=== PATIENT | female | born 1970 | race Caucasian/White ===

== ENCOUNTER 2018-03-08 01:19 | Emergency (ER) | payer MEDICAID ==
[~2018-03-08] VITALS: Ht 154.9 cm; Wt 69.9 kg
[2018-03-08 01:24] VITALS: Ht 154.9 cm; Wt 69.9 kg
--- NOTE | 2018-03-08 03:04 | ERD ---
ER Documentation Chief Complaint Chief Complaint LEFT EAR PAIN AND CHEEK PAIN/ITCHING X3DAYS HPI Patient is a 47-year-old female with no past medical history presents the ER for concerns of left ear discomfort and left cheek tingling for the last 5 days. Patient states her symptoms started 5 days ago. Patient reports her left cheek itching at that time. Patient states she has had an intermittent burning sensation since onset of symptoms to her left cheek. Patient denies any rashes. She states she thought she may have been having allergic reaction so she tried to put Vaseline to the affected area. Patient denies any lip swelling, tongue swelling, difficulty swallowing, chest tightness, cough. Patient denies any chest pain, shortness breath, left upper extremity pain, diaphoresis or LOC. Patient denies any headache. Patient denies any pain. Patient denies any unilateral weakness, difficulty ambulating, slurred speech or facial asymmetry. Patient's is also present and states that patient has not had any of these symptoms. ROS All systems reviewed and are negative except as per history of present illness. PMhx/Soc Medical and Surgical Hx: pt denies Medical Hx, pt denies Surgical Hx Hx Alcohol Use: No Hx Substance Use: No Hx Tobacco Use: No Smoking Status: Never smoker FmHx Family History: No diabetes Physical Exam Vitals Vital Signs Date Temp Pulse Resp B/P (MAP) Pulse Ox O2 O2 Flow FiO2 Time Delivery Rate 03/08/18 97.0 75 19 145/79 98 01:24 (101) Physical Exam GENERAL: Well-developed, well-nourished female. Appears in no acute distress. Speaking in full sentences. No facial asymmetry noted. HEAD: Normocephalic, atraumatic. EYES: Pupils are equally reactive bilaterally. EOMs grossly intact. No conjunctival erythema. ENT: Bilateral TMs nonerythematous, non bulging. No mastoid tenderness bilaterally. Moist mucous membranes. No uvula deviation. No kissing tonsils. NECK: Supple. No meningismus. Normal range of motion of the neck. LUNG: Clear to auscultation bilaterally. No rhonchi, wheezing, rales or coarse breath sounds. HEART: Regular rate and rhythm. No murmurs, rubs or gallops. EXTREMITIES: Equal pulses bilaterally. No peripheral clubbing, cyanosis or edema. No unilateral leg swelling. NEUROLOGIC: Alert and oriented x3, cooperative. Mood and affect appropriate to situation. Cranial nerves II through XII are grossly intact. Normal speech. Motor exam: 5/5 strength in upper and lower extremities. Sensory exam: Sensation intact to light touch on all four extremities. Cerebellar function exam: Rapid alternating movements intact. No dysmetria on psoagf-mi-dwqj and cxeb-fx-nmzh test. Steady gait. No pronator drift. Equal operations administrative assistant strength bilaterally. SKIN: Normal color. Warm and dry. No rashes or lesions. Procedures/MDM MEDICAL DECISION MAKING: Patient is a 46-year-old female no past medical history presents the ER for concerns of left ear discomfort and cheek tingling for the last 5 days. Patient denied history of slurred speech, facial asymmetry, unilateral weakness, difficulty ambulating. Vital signs were reviewed. Patient is afebrile. Patient was not hypoxic. Patient was hemodynamically stable. Physical exam findings were unremarkable. Low suspicion for Meraz's palsy. Full neuro exam was normal. I have low suspicion for CVA or TIA at this time. Patient denies any chest pain, shortness of breath, nausea, vomiting or LOC. Low suspicion for ACS, PE or aortic dissection. Patient was advised that she may follow-up with a neurolo gist for further management of her symptoms. Patient and her were advised to monitor symptoms closely return to the ER for any new or worsening symptoms. Case was discussed with supervising physician Dr. Toribio who agreed that patient was stable for outpatient management. Patient was nontoxic, non- ill appearing prior to discharge. DISCHARGE: At this time, patient is stable for discharge and outpatient management. I have instructed the patient to follow-up with his/her primary care physician in 1-2 days. I have discussed with the patient the possibility of needing to see a specialist for further workup and imaging studies if symptoms persist. I have instructed the patient to promptly return to the ER for any new or worsening symptoms including increased pain, fever, nausea, vomiting, weakness or LOC. The patient and/or family expressed understanding of and agreement with this plan. All questions were answered. Home care instructions were provided. Patients blood pressure was elevated (>120/80) but appears stable without evidence of hypertensive emergency, hypertensive urgency or end-organ failure. I had discussion with the patient about the risks of hypertension. I have advised the patient to follow up with his/her primary care physician for outpatient monitoring and treatment for hypertension in 2-3 days. I have instructed the patient to return to the ER for any new or worsening symptoms including chest pain, shortness of breath, headache, blurred vision, confusion, nausea, vomiting or LOC. Departure Diagnosis: Primary Impression: Paresthesias Condition: Fair Patient Instructions: Paraesthesias Referrals: SYED GAMEZ MUNTHER A KIM,TREV GOLDEN,BETTY HUGO,[facility] () Usted se brower hecho un examen mdico de control que le indica que no est en walter condicin que requiera tratamiento urgente en el Departamento de Emergencia. Un estudio ms profundo y el tratamiento de claire condicin pueden esperar sin ningn riesgo hasta que usted sea atendida/o en el consultorio de claire mdico o walter clnica. Es responsabilidad suya arreglar walter luis fernando para el seguimiento del valdez. MANEJO DE CONDICIONES NO URGENTES EN EL FUTURO 1) Si usted tiene un mdico de atencin primaria: Usted debera llamar a claire mdico de atencin primaria antes de venir al departamento de emergencia. Despus de las horas de consultorio, claire doctor o claire asociado/a est disponible por telfono. El mdico o enfermero de roman en el servicio telefnico puede asesorarle por david medio para atender el problema, o valdez contrario se puede programar walter luis fernando. 2) Si usted no tiene un mdico de atencin primaria: Llame al mdico o clnica de referencia que aparece abajo jeanie las horas de consultorio para hacer walter luis fernando para que le vean. CLINICAS: [facility] [phone] [address] [facility] 998 [phone] [address] [facility] 942 [phone] [address] [facility] [phone] [address] [facility]. [facility] 966 [phone] [address] [facility]. [phone] [address] [facility]. [facility] () Usmatt se brower hecho un examen mdico de control que le indica que no est en walter condicin que requiera tratamiento urgente en el Departamento de Emergencia. Un estudio ms profundo y el tratamiento de claire condicin pueden esperar sin ningn riesgo hasta que usted sea atendida/o en el consultorio de claire mdico o walter clnica. Es responsabilidad suya arreglar walter luis fernando para el seguimiento del valdez. MANEJO DE CONDICIONES NO URGENTES EN EL FUTURO 1) Si usted tiene un mdico de atencin primaria: Usted debera llamar a claire mdico de atencin primaria antes de venir al departamento de emergencia. Despus de las horas de consultorio, claire doctor o claire asociado/a est disponible por telfono. El mdico o enfermero de roman en el servicio telefnico puede asesorarle por david medio para atender el problema, o valdez contrario se puede programar walter luis fernando. 2) Si usted no tiene un mdico de atencin primaria: Llame al mdico o condado institucions de referencia que aparece abajo jeanie las horas de consultorio para hacer walter luis fernando para que le vean. SI USTED NO PUEDE PAGAR PARA SHERI UN MEDICO puede ir a: [facility] [address] [place] [address] [facility] [address] [place] [address] [facility] [address] [place] [address] [facility]A [facility] [address] [place] [address] Additional Instructions: Llame al doctor MAANA y napoleon walter LUIS FERNANDO PARA DENTRO DE 1-2 VAZ.Dgale a la secretaria que nosotros le instruimos hacer esta luis fernando.Avise o llame si claire condicin se empeora antes de la luis fernando. Regresa aqui si peor o no mejor. JONATAN SILVESTRE PA-C Mar 08, 2018 03:04
[2018-03-08 03:16] VITALS: BP 118/76; PULSE 88; RESP 16
== END 2018-03-08 03:24 | disposition home or self-care (01) ==
LOC: FTE 01:19
DX: R20.2 Paresthesia of skin (principal)
CPT/HCPCS: 99282